=== PATIENT | male | born 1965 | race Two or more races ===

== ENCOUNTER 2019-07-12 08:45 | Emergency (ER) | payer SELFPAY ==
--- NOTE | 2019-07-12 09:11 | ER Document Report ---
ED General - General Chief Complaint: Finger Injury Stated Complaint: FINGER LACERATION Time Seen by Provider: 07/12/19 09:10 Primary Care Provider: SHELBY DAS MD [ACTIVE STAFF] - Follow up as needed - [facility] Notes: [id number] male presents with laceration to his left middle finger. Patient was cutting trim with a circular saw. Sustained approximately 1 inch laceration on the palmar aspect extending to the radial aspect of the finger. Approximate Z formation profound swelling bleeding controlled at this time. - Related Data Allergies/Adverse Reactions: No Known Allergies Allergy (Unverified 07/12/19 08:48) Past Medical History - Social History Smoking Status: Unknown if Ever Smoked Family History: None Physical Exam - Vital signs Vitals: Temp Pulse Resp BP Pulse Ox 97.6 F 72 16 141/85 H 98 07/12/19 08:54 07/12/19 08:54 07/12/19 08:54 07/12/19 08:54 07/12/19 08:54 - Notes Notes: PHYSICAL EXAMINATION: GENERAL: Well-appearing, well-nourished and in no acute distress. HEAD: Atraumatic, normocephalic. EYES: Pupils equal round and reactive to light, extraocular movements intact, sclera anicteric, conjunctiva are normal. ENT: nares patent, oropharynx clear without exudates. Moist mucous membranes. NECK: Normal range of motion, supple without lymphadenopathy LUNGS: Breath sounds clear to auscultation bilaterally and equal. No wheezes rales or rhonchi. HEART: Regular rate and rhythm without murmurs ABDOMEN: Soft, nontender, normoactive bowel sounds. No guarding, no rebound. No masses appreciated. EXTREMITIES: 1 inch laceration starting on the palmar aspect of left middle finger extending to the ulnar aspect of left ring finger. No nailbed involvement. NEUROLOGICAL: Cranial nerves grossly intact. Normal speech, normal gait. Normal sensory and motor exams. PSYCH: Normal mood, normal affect. SKIN: Warm, Dry, normal turgor, no rashes or lesions noted. Course - Re-evaluation Re-evalutation: 07/12/19 10:48 Laceration cleaned with copious amount of sterile saline solution. Betadine. Closed successfully with simple interrupted sutures. Patient tetanus status updated given analgesia in the department. We will dressed with bacitracin Xeroform. Finger splinted for definitive management. Will be discharged home for hand surgery follow-up, oral antibiotic and pain medicine. Given strict return precautions. - Vital Signs Vital signs: Temp Pulse Resp BP Pulse Ox 97.6 F 72 16 141/85 H 98 07/12/19 08:54 07/12/19 08:54 07/12/19 08:54 07/12/19 08:54 07/12/19 08:54 Procedures - Immobilization Left Finger 3rd digit Pre-Proc Neuro Vasc Exam: Normal Immobilizer type: Finger splint (Static) Post-Proc Neuro Vasc Exam: Normal - Laceration/Wound Repair Left Finger 3rd digit Wound length (cm): 2.5 Wound's Depth, Shape: Irregular, Flap Anesthetic type: 1% Lidocaine Wound explored: No foreign body removed Wound Debrided: Minimal Wound Repaired With: Sutures Suture Size/Type: 4:0 Post-procedure wound care: Sterile dressing applied, Splint applied Discharge - Discharge Clinical Impression: Finger laceration Qualifiers: Encounter type: initial encounter Finger: middle finger Damage to nail status: without damage Foreign body presence: without foreign body Laterality: left Qualified Code(s): S61.213A - Laceration without foreign body of left middle finger without damage to nail, initial encounter Condition: Stable Disposition: HOME, SELF-CARE Instructions: Laceration Care ([facility]) Prescriptions: Cephalexin Monohydrate [Keflex 500 mg Capsule] 500 mg PO Q6H 5 Days capsule Oxycodone HCl [Oxycontin Ir 5 Mg Tablet] 1 - 2 mg PO Q4H PRN #15 tablet PRN Reason: For Pain Referrals: SHELBY DAS MD [ACTIVE STAFF] - Follow up as needed CRISTO PHAM DO [ACTIVE STAFF] - Follow up as needed
[2019-07-12] MEDS ORDERED: OXYCODONE HCL IR 5 MG TABLET PO ONE (09:13)
[2019-07-12] MEDS ORDERED: LIDOCAINE 1% INJ-PF (10 MG/ML) 30 ML SDV INJ ONE (09:14)
[2019-07-12] MEDS ORDERED: LIDOCAINE 1% INJ (10 MG/ML) 10 ML MDV INJ ONE (09:14)
[2019-07-12] MEDS ORDERED: BACITRACIN ZINC OINTMENT 15 GM TP ONE (09:18)
--- NOTE | 2019-07-12 10:13 | RADIOLOGY REPORT (SQ) ---
EXAM DESCRIPTION: FINGER LEFT COMPLETED DATE/TIME: 07/12/2019 9:59 am REASON FOR STUDY: laceration COMPARISON: None. NUMBER OF VIEWS: Three views. TECHNIQUE: AP, lateral, and oblique images acquired of the left third finger. LIMITATIONS: None. FINDINGS: MINERALIZATION: Normal. BONES: Ossific density along the volar aspect of the distal 3rd phalanx, donor site possibly from the base of the distal phalanx. No additional fractures. SOFT TISSUES: Soft tissue laceration along the distal 3rd digit. Punctate radiodensity seen with ove rlying the volar soft tissues, possibly foreign bodies. OTHER: No other significant finding. IMPRESSION: 1. Ossific density along the volar aspect of the distal 3rd phalanx compatible with fra cture. Fracture donor site likely from the base of the distal 3rd phalanx. 2. Soft tissue laceration with punctate densities overlying the pad of the 3rd digit, possibly forei gn bodies. TECHNICAL DOCUMENTATION: JOB ID: [id number] [employer]- All Rights Reserved Reading location - IP/workstation name: [email or web address]
[2019-07-12 11:10] VITALS: BP 138/96
== END 2019-07-12 11:58 | disposition home or self-care (01) ==
LOC: ER 08:45
DX: S61.213A Laceration without foreign body of left middle finger without damage to nail, initial encounter (principal); Z23 Encounter for immunization; W29.8XXA Contact with other powered hand tools and household machinery, initial encounter
CPT/HCPCS: 73140; 12001; J3490 ×2

== ENCOUNTER 2020-03-05 20:34 | Emergency (ER) | payer SELFPAY ==
[2020-03-05 20:42] VITALS: BP 158/86
[2020-03-05] MEDS ORDERED: TETRACAINE HCL 0.5% OPH SOLN 4 ML OS ONE (21:02)
[2020-03-05] MEDS ORDERED: DIPHENHYDRAMINE HCL 25 MG CAPSULE PO ONE (21:02)
--- NOTE | 2020-03-05 21:02 | ER Document Report ---
ED Medical Screen (RME) - General Chief Complaint: Eye Pain Stated Complaint: EYE PAIN Time Seen by Provider: 03/05/20 20:57 Primary Care Provider: NIKKO LOPEZ PA-C [Primary Care Provider] - Follow up as needed Mode of Arrival: Ambulatory Information source: Patient Notes: 54-year-old male presents with ecchymosis of the left conjunctive via. He reports he was out in his yard working with a hose when he started having irritation the left eye. He reports feels like something is in it. Reports no problems with his vision. He reports when he closes his eye it feels like something is in it. I have greeted and performed a rapid initial assessment of this patient. A comprehensive ED assessment and evaluation of the patient, analysis of test results and completion of the medical decision making process will be conducted by additional ED providers. - Related Data Allergies/Adverse Reactions: No Known Allergies Allergy (Unverified 07/12/19 08:48) Past Medical History - Social History Frequency of alcohol use: None Drug Abuse: None Physical Exam - Vital signs Vitals: Temp Pulse Resp BP Pulse Ox 98.4 F 71 16 158/86 H 97 03/05/20 20:40 03/05/20 20:40 03/05/20 20:40 03/05/20 20:40 03/05/20 20:40 Course - Vital Signs Vital signs: Temp Pulse Resp BP Pulse Ox 98.4 F 71 16 158/86 H 97 03/05/20 20:57 03/05/20 20:40 03/05/20 20:40 03/05/20 20:40 03/05/20 20:40 Doctor's Discharge - Discharge Referrals: NIKKO LOPEZ PA-C [Primary Care Provider] - Follow up as needed
[2020-03-05] MEDS ORDERED: POLYMYXIN B SULFATE/TMP OPH SOLN (10 ML/ER DISP) OS PRN (23:21)
[2020-03-05] MEDS ORDERED: CYCLOPENTOLATE HCL 1% OPH SOLN 2 ML OS ONE (23:22)
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
[2020-03-06] MEDS ORDERED: CYCLOPENTOLATE HCL 1% OPH SOLN 2 ML ONE (00:14)
== END 2020-03-06 00:26 | disposition home or self-care (01) ==
LOC: ER 20:34
DX: H11.002 Unspecified pterygium of left eye (principal); S05.02XA Injury of conjunctiva and corneal abrasion without foreign body, left eye, initial encounter; H57.12 Ocular pain, left eye; X58.XXXA Exposure to other specified factors, initial encounter; I10 Essential (primary) hypertension; E78.5 Hyperlipidemia, unspecified
CPT/HCPCS: 99283; J3490 ×2